=== PATIENT | male | born 1995 | race Caucasian/White ===

== ENCOUNTER 2018-05-05 11:32 | Emergency (ER) | payer OTHER ==
[2018-05-05 11:36] VITALS: BP 145/80
--- NOTE | 2018-05-05 12:11 | EDPHY ---
H & P Time Seen by Provider: 05/05/18 11:54 HPI/ROS: CHIEF COMPLAINT: Facial trauma HISTORY OF PRESENT ILLNESS: 22-year-old male presents to the emergency department complaining of right-sided jaw pain. The patient states 2 weeks ago he was playing basketball and fell landing on the right side of his face. He did not lose consciousness. He immediately felt some pain in his jaw. He presents to the emergency department now 2 weeks later since his pain has not gotten better or gone away. He has been eating soft foods. He has pain and difficulty opening his mouth fully. He denies neck pain. Denies dysphagia. Denies chest pain or difficulty breathing. Denies any other injury or trauma. Denies dental injury. REVIEW OF SYSTEMS: Constitutional: No fever, no chills. Eyes: No double or blurry vision. ENT: No sore throat. Respiratory: No cough, no shortness of breath. Cardiac: No chest pain. Gastrointestinal: No abdominal pain, vomiting or diarrhea. Genitourinary: No dysuria. Musculoskeletal: No neck or back pain. Skin: No rashes. Neurological: No headache. Past Medical/Surgical History: Substance abuse Social History: Single Smoking Status: Current every day smoker Physical Exam: General Appearance: Alert, no distress. Mentating normally and answering questions appropriately. No visible facial swelling or ecchymosis or healing abrasions. Eyes: Pupils equal and round. Extraocular motions are all intact. ENT: Mouth: Mucous membranes moist. Patient has reproducible pain with palpation at the right TMJ. No palpable crepitus or other bony abnormality. He has some trismus is unable to open his mouth more than of 2 or 3 cm. No malocclusion. No dental injury visualized. Respiratory: No wheezing, rhonchi, or rales, lungs are clear to auscultation. Cardiovascular: Regular rate and rhythm. Gastrointestinal: Abdomen is soft and nontender, no masses, no rebound or guarding, bowel sounds normal. Neurological: Alert and oriented x 3, cranial nerves II through XII grossly intact Skin: Warm and dry, no rashes. Musculoskeletal: Nontender to palpate along the cervical, thoracic or lumbar spine. Neck is supple. Extremities: Full range of motion and no peripheral edema. Psychiatric: Patient is oriented X 3, there is no agitation. Constitutional: Initial Vital Signs Temperature (C) 37.0 C 05/05/18 11:34 Heart Rate 71 05/05/18 11:34 Respiratory Rate 16 05/05/18 11:34 Blood Pressure 145/80 H 05/05/18 11:34 O2 Sat (%) 97 05/05/18 11:34 O2 Delivery Mode Room Air Allergies/Adverse Reactions: No Known Allergies Allergy (Unverified 05/05/18 11:34) Home Medications: Medication Instructions Recorded NK [No Known Home Meds] 05/05/18 Medical Decision Making - Diagnostics Imaging Results: Imaging Impressions Face CT 05/05/18 12:05 Impression: No evidence of acute osseous abnormality. TMJ joints do not appear subluxed ED Course/Re-evaluation: 22-year-old male presents to the emergency department with facial pain after he had a mechanical fall at home earlier this morning. He did not lose consciousness. He has a normal neurologic examination. He does however have tenderness with palpation over the left inferior orbit and over the left maxillary sinus and over his nasal bone. I was concerned about possible orbital fracture. CT imaging of the brain was ordered which revealed isolated nasal bone fracture. No intracranial bleeding. Patient was given ENT referral. He was encouraged to use cool compresses. He was instructed to return to the emergency department if he had any change in symptoms or felt worse. Differential Diagnosis: Head injury including but not limited to concussion, skull fracture, intraparenchymal contusion, subarachnoid, subdural and epidural hematoma. Departure - Departure Disposition: Home, Routine, Self-Care Clinical Impression: Contusion of mandibular joint area Qualifiers: Encounter type: initial encounter Qualified Code(s): S00.83XA - Contusion of other part of head, initial encounter Condition: Good Instructions: Temporomandibular Disorder (ED), Contusion in Adults (ED) Additional Instructions: Ibuprofen 600 mg every 8 hr as needed for pain. Soft foods as discussed. Follow up with oral surgeon as needed in 1 week if you continue to have ongoing symptoms. Return sooner if you feel worse in any way. Referrals: Roman Milligan DDS [Doctor of Dental Surgery] - 5-7 days, if not improved ( Oral surgeon on-call)
== END 2018-05-05 13:09 | disposition home or self-care (01) ==
DX: S00.83XA Contusion of other part of head, initial encounter (principal); F17.200 Nicotine dependence, unspecified, uncomplicated; W18.39XA Other fall on same level, initial encounter; Y92.310 Basketball court as the place of occurrence of the external cause; Y99.8 Other external cause status; Y93.67 Activity, basketball

== ENCOUNTER 2019-03-28 21:57 | Emergency (ER) | payer BC | END 2019-03-28 23:51 | disposition home or self-care (01) ==

== ENCOUNTER 2019-03-31 23:14 | Emergency (ER) | payer BC | END 2019-04-01 00:41 | disposition home or self-care (01) ==